=== PATIENT | male | born 1990 | race Hispanic/Latino ===

== ENCOUNTER 2018-01-18 07:10 | Emergency (ER) | payer OTHER ==
[~2018-01-18] VITALS: Ht 167.6 cm; Wt 70.0 kg
[2018-01-18] MEDS ORDERED: KEFLEX500 M1 PO (09:15)
[2018-01-18] MEDS ORDERED: FLEXERIL PO (09:15)
[2018-01-18] MEDS ORDERED: TORADOL PO (09:15)
[2018-01-18 09:24] VITALS: BP 129/90
== END 2018-01-18 09:24 | disposition home or self-care (01) | DRG 605 ==
LOC: ED 07:10 → EDBD 07:10 → ED 07:58
PROC: 0HQ1XZZ Repair Face Skin, External Approach (ICD-10-PCS; principal; 2018-01-18)
DX: S01.81XA Laceration without foreign body of other part of head, initial encounter (principal); S16.1XXA Strain of muscle, fascia and tendon at neck level, initial encounter; F17.210 Nicotine dependence, cigarettes, uncomplicated; V53.6XXA Passenger in pick-up truck or van injured in collision with car, pick-up truck or van in traffic accident, initial encounter